=== PATIENT | female | born 1985 | race Caucasian/White ===

== ENCOUNTER 2017-08-18 18:11 | Emergency (ER) | payer MEDICAID ==
[~2017-08-18] VITALS: Ht 165.1 cm; Wt 93.3 kg
[2017-08-18] MEDS ORDERED: ONDA4TAB12 PO (22:11)
[2017-08-18] MEDS ORDERED: HYDR-3965 PO (22:11)
[2017-08-18 22:25] VITALS: BP 134/86
== END 2017-08-18 22:36 | disposition home or self-care (01) ==
LOC: ER 18:12
DX: S92.424A Nondisplaced fracture of distal phalanx of right great toe, initial encounter for closed fracture (principal); Z79.899 Other long term (current) drug therapy; X58.XXXA Exposure to other specified factors, initial encounter; Y93.89 Activity, other specified; Y92.89 Other specified places as the place of occurrence of the external cause; Y99.8 Other external cause status
CPT/HCPCS: 73660; 99284

== ENCOUNTER 2017-09-26 10:07 | Outpatient (CLI) | payer MEDICAID ==
[~2017-09-26] VITALS: Ht 162.6 cm; Wt 195.0 kg
[~2017-09-26 10:07] MED LIST: ONDA4TAB12 PO
[2017-09-26 10:09] VITALS: BP 109/68
== END 2017-09-26 10:50 | disposition home or self-care (01) ==
LOC: ORTHO 10:07
PROVIDERS: ATTEND Nurse Practitioner Family
DX: S92.424A Nondisplaced fracture of distal phalanx of right great toe, initial encounter for closed fracture (principal); Z88.0 Allergy status to penicillin; Z88.8 Allergy status to other drugs, medicaments and biological substances; X58.XXXA Exposure to other specified factors, initial encounter; Y93.89 Activity, other specified; Y92.89 Other specified places as the place of occurrence of the external cause; Y99.8 Other external cause status
CPT/HCPCS: 73660; 99213

== ENCOUNTER 2017-10-24 10:08 | Outpatient (CLI) | payer MEDICAID ==
[2017-10-24 10:09] VITALS: BP 117/78
== END 2017-10-24 10:46 | disposition home or self-care (01) ==
LOC: ORTHO 10:08
PROVIDERS: ATTEND Nurse Practitioner Family
DX: S92.421D Displaced fracture of distal phalanx of right great toe, subsequent encounter for fracture with routine healing (principal); Z88.0 Allergy status to penicillin; Z88.8 Allergy status to other drugs, medicaments and biological substances; X58.XXXD Exposure to other specified factors, subsequent encounter
CPT/HCPCS: 73660; 99213

== ENCOUNTER 2025-02-14 13:24 | Outpatient (CLI) | payer MEDICAID ==
[~2025-02-14 13:24] MED LIST changes: +ONDA-243 PO; -ONDA4TAB12 PO
--- NOTE | 2025-02-14 15:39 | RADIOLOGY REPORT ---
PROCEDURE: MR MRI HEAD INDICATION: PITUITARY TUMOR COMPARISON: None TECHNIQUE: Multiplanar multisequence images of the brain are obtained. FINDINGS: There is no abnormal diffusion restriction. There is no intracranial hemorrhage. No extra-axial fluid collection, mass effect or midline shift. The ventricles are midline and normal in size. The cisterns are patent. Normal intracranial flow voids are preserved. No abnormal susceptibility signal. Limited evaluation of the pituitary fossa The sinuses and mastoids are well pneumatized. 9 mm sphenoid sinus opacity that is T1 and thenar 2 intermediate signal. Pituitary gland size within normal limits. 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 IMPRESSION: No acute cerebrovascular ischemia. 5 mm pineal gland cyst. Pituitary size within normal limits. To evaluate for pituitary lesion recommend MRI brain with and without contrast, pituitary mass protocol. 9 mm T1 and T2 intermediate signal opacity/ lesion in the sphenoid sinus adjacent to the sella turcica. Correlate with prior imaging. This could represent sequela of Sphenoid sinus disease however other lesions not excluded. This can also be further evaluated on MRI of the brain with and without cont rast, pituitary protocol.
== END 2025-02-14 23:59 | disposition home or self-care (01) ==
LOC: MRI02 13:24
PROVIDERS: ATTEND Family Medicine
DX: G93.0 Cerebral cysts (principal); D49.7 Neoplasm of unspecified behavior of endocrine glands and other parts of nervous system
CPT/HCPCS: 70551